=== PATIENT | male | born 1955 | race Two or more races ===

== ENCOUNTER 2024-03-22 13:02 | Emergency (ER) | payer OTHER, MEDICAID, SELFPAY ==
[2024-03-22 13:28] VITALS: BP 134/73; PULSE 68; RESP 18; TEMP 36.7; O2SAT 97; BMI 26.6
--- NOTE | 2024-03-22 13:40 | PD.EDADULT ---
ED General RME/HPI General Chief complaint: Flu Like Symptoms Stated complaint: FLU SYMPTOMS FOR 7 DAYS Time Seen by Provider: 03/22/24 13:37 Arrival date/time: CC: Cough fever phlegm , chills HPI ongoing for the past 4 days after day 2, fever disagrees but although symptoms persisted. Minimal relief with Tylenol. No other complaints including chest pain shortness of breath breathing. 03/22/24 13:02 Related Data Previous Rx's ?Medication ?Instructions ?Recorded doxycycline hyclate 100 mg capsule 100 mg PO BID #14 caps 03/22/24 prednisone 20 mg tablet See Taper PO BID 3 days #6 tabs 03/22/24 Allergies Allergy/AdvReac Type Severity Reaction Status Date / Time No Known Allergies Allergy Verified 03/22/24 13:05 Review of Systems Review of Systems Narrative Review of Systems: GEN: + fever, + chills, no weight loss EYES: No discharge, no visual changes, no pain HEENT: No ear pain, no congestion, no sore throat PULM: No shortness of breath, + cough, no congestion CV: No chest pain, no dyspnea on exertion, no palpitations GI: No nausea, no vomiting, no diarrhea, no pain, no constipation : No frequency, no urgency, no dysuria MUSC/SKEL: No joint pain, no back pain SKIN: No rash PSYCH: No hallucinations, no depression HEME/LYMPH: No easy bleeding or bruising tendencies NEURO: No weakness, no headache Past Medical History Social History SMOKING STATUS: Current some day smoker ED Exam Narrative Physical exam: [General: Not in any acute distress Head normocephalic HEENT: Eyes pupils PERRLA EOMs intact, all other subsystems of HEENT are within acceptable limits Neck is supple nontender Chest equal chest rise nontender to palpation Respiratory: Clear to auscultation no wheezes crackles or rubs CV: Rate rhythm is regular no murmurs rubs or clicks Abdomen is soft nontender no masses positive bowel sounds all 4 quadrants Back: No CVA tenderness no spinous process tenderness from cervical spine thoracic and lumbar spine Skin: Intact no petechiae rash induration ulceration or crepitus Extremities: Moving all extremity against resistance cap refill less than 2 seconds neurosensory intact Neuro: Awake alert oriented x3 Glascow coma 15 no focal deficits] Course Quality Measures none Vital Signs Vital signs: Vital Signs Temperature 98.1 F 03/22/24 13:28 Pulse Rate 68 03/22/24 13:28 Respiratory Rate 18 03/22/24 13:28 Blood Pressure 134/73 H 03/22/24 13:28 Pulse Oximetry (%) 97 03/22/24 13:28 Oxygen Delivery Method Room Air 03/22/24 13:28 [facility] Patient data External records reviewed:: [facility] previous records Clinical information provided by:: patient and spouse Social determinants that could affect healthcare access:: none Patient has the following chronic illnesses:: None How is presenting disease/condition affected by chronic disease/condition?: uneffected by Evaluation data The following diagnostics were reviewed and interpreted by me:: other (specify) (None) Lab and/or radiology exams considered but not ordered:: None Interpretation Summary: Bronchitis Medications Medications considered but not ordered:: None Medication administrations:: None Consultations Consultation(s) initiated? (list below): No Diagnosis Differential Diagnosis ED Complaint MDM: Pneumonia bronchitis URI Most likely diagnosis given after review of the tests above:: Bronchitis Admission Indicated Admission indicated?: not indicated Explain why admission is indicated or not indicated:: Stable for outpatient Admission Request Was there a request for admission?: No Disposition Plan Disposition Plan: Discharge Discharge Attestation Discharge Attestation: The patient and all family members were given an opportunity to ask questions and understood the discharge instructions. Discharge instructions specifically effects, indications for sooner follow up or return to the emergency department, and the expected course of current diagnosis. Patient condition: Stable Medical Decision Making Differential Diagnosis Differential Diagnosis: Pneumonia bronchitis URI Discharge Plan Plan Patient Disposition: HOME (Self Care) Patient condition on transfer: Stable Prescriptions/Referrals Prescriptions/Med Rec: New doxycycline hyclate 100 mg capsule 100 mg PO BID Qty: 14 0RF prednisone 20 mg tablet See Taper PO BID 3 Days Qty: 6 0RF Taper: Prednisone Taper 20 mg DAILY for 2 Days and 0 Hour 10 mg DAILY for 2 Days and 0 Hour 5 mg DAILY for 7 Days and 0 Hour Referrals: Gabo Castillo MD [Physician] - In 1 week No Primary/Family,Physician [Primary Care Provider] - In 1 week Problem List Clinical Impression: Bronchitis Patient/Caregiver Discharge Instructions Other Activity Instructions:: Take the medications as prescribed, if there is a worsening of symptoms follow-up with your primary care doctor. Continue take ibuprofen or Tylenol. Education Materials: ED Upper Resp Infec Abx Tx Print Language: Surinamese Stand Alone Forms: Krista Award Info., Work/School Release, Patient Portal Info Letter PA/BONE CHAR KILN TENDER Supervising Physician PA/BONE CHAR KILN TENDER Supervising Physician: Sushant Greco ENP
== END 2024-03-22 15:21 | disposition home or self-care (01) ==
PROVIDERS: Emergency Provider Emergency Medicine
DX: J40 Bronchitis, not specified as acute or chronic (principal); F17.200 Nicotine dependence, unspecified, uncomplicated
CPT/HCPCS: 99281

== ENCOUNTER 2024-06-24 18:42 | Emergency (ER) | payer OTHER, MEDICAID, SELFPAY ==
--- NOTE | 2024-06-24 18:52 | XR_ITS ---
Examination: CT brain head without contrast. 2-D sagittal coronal reconstructions Date and time of exam:June 24, 2024 1925 hrs. Indications: Onset right upper back and right upper extremity numbness beginning 2 days ago CTDI: vol (mGy):49.2 DLP: (mGycm):995 Technique: Multiple CT axial sections of the brain have been obtained, 5 mm slice thickness. Contrast has not been administered. 2-D sagittal, coronal reconstructions have been obtained Low dose protocols were performed. One or more of the following dose reduction techniques were used; automated exposure control, adjustment of the mA and/or KV according to patient size, use of iterative reconstruction technique. Findings: No significant ventricular enlargement. Intra-axial or extra-axial hemorrhage density is not seen. No mass effect or midline shift Basal cisterns are not remarkable. Fourth ventricle is midline. Cranial vault intact. Impression: Negative for acute hemorrhage, mass effect or midline shift As clinically warranted, brain MRI follow-up would best assess for acute ischemic change
--- NOTE | 2024-06-24 18:53 | XR_ITS ---
Examination: Shoulder,right, 3 views Technique: Shoulder AP internal rotation, AP external rotation, Y view shoulder, 3 views Exam date and time :June 24, 20242005 hrs. Indications: Right shoulder pain 3 weeks. Findings: Advanced osteoarthritis glenohumeral joint Right shoulder calcific tendinitis No fracture or dislocation Impression: Advanced right shoulder osteoarthritis Right shoulder calcific tendinitis
--- NOTE | 2024-06-24 18:56 | PD.EDBACK ---
ED Back Injury Pain RME/HPI General Chief Complaint: Back Pain/Injury Stated Complaint: RIGHT UPPER BACK PAIN Time Seen by Provider: 06/24/24 18:52 Arrival date/time: 06/24/24 18:42 RME / HPI RME / HPI Narrative: This section includes all my notes and documentations, including HPI, PE, and ED course. Nasir Keene MD HPI: 69yo male presents to the ED for a chief complaint of right chest/upper abdominal pain. Patient states he's had right upper abdominal/chest pain for the last 3 weeks, reporting it worsens when he moves his arms a certain way. He also endorses having right hand numbness since yesterday at 0900 and has been shaky ever since. He denies any falls or injuries. No speech or visual impairment. No loss of power in the arms or legs. No chest pain. No other complaints reported. ROS: All negative except as documented in HPI. Physical Exam: General: Alert and oriented. No acute distress when remaining still. Eyes: Conjunctivae and lids clear. PERRL. EOMI. ENT: No nasal congestion. Neck: Supple. Heart: RRR. Lungs: No respiratory distress. Good air movement. No rhonchi, wheezing, rales. Skin: Warm and dry. Neuro: Alert and oriented X 3. Cranial nerves II through XII grossly normal. No peripheral motor deficits. Right shoulder: No tenderness with palpation. Limited range of motion due to pain. I reviewed all diagnostic test results. My interpretation of the shoulder x-ray is NAD. My review of the head CT report is NAD. At this point, diagnoses include muscle strain. Recommended supportive care. Based on my best medical judgment, made decision no further evaluation or treatment indicated at this time. Patient understands and agrees to the discharge instructions customized and printed, see below. Discharge Instructions from Dr. Keene printed for you: 1. After evaluation, there is no stroke. 2. Your symptoms are due to tears in small muscle fibers in your right shoulder and right torso. And the swelling inflammation is pinching the nerves causing your numbness and tingling in the right fingers. Will get better in a month. 3. Activity as tolerated. 4. Apply ice or heat if helpful 5. Ibuprofen 400 mg every 6-8 hours today and tomorrow to decrease inflammation then as needed. Lidocaine patches as needed. Tylenol with codeine for severe pain. 6. See a private doctor on 06/29/24 for recheck. Ask for help until you are completely better. 7. Seek immediate medical care with worsening or with any concerns. Nasir Keene MD Related Data Previous Rx's ?Medication ?Instructions ?Recorded doxycycline hyclate 100 mg capsule 100 mg PO BID #14 caps 03/22/24 acetaminophen 300 mg-codeine 30 mg 2 tab PO Q8H PRN pain #20 tabs 06/24/24 tablet cyclobenzaprine 5 mg tablet 5 mg PO TID PRN muscle spasm #15 06/24/24 tabs lidocaine 5 % topical patch 2 patch topical QDAY PRN pain #30 06/24/24 (Lidoderm) ea Allergies Allergy/AdvReac Type Severity Reaction Status Date / Time No Known Allergies Allergy Verified 06/24/24 18:49 Review of Systems Review of Systems Systems Reviewed: All systems reviewed, normal except as documented Past Medical History Social History SMOKING STATUS: Never smoker ED Exam Narrative Physical exam: As noted in HPI. Course Quality Measures none Orders Category Date Time Status CT head/brain wo con Stat Exams 06/24/24 18:52 Completed XR shoulder RT min 2V Stat Exams 06/24/24 18:53 Completed Vital Signs Vital signs: Vital Signs Temperature 99 F 06/24/24 19:19 Pulse Rate 64 06/24/24 19:19 Respiratory Rate 18 06/24/24 19:19 Blood Pressure 143/76 H 06/24/24 19:19 Pulse Oximetry (%) 97 06/24/24 19:19 Oxygen Delivery Method Room Air 06/24/24 19:19 Back Pain / Injury MDM Narrative [facility] Narrative:: Scribe Attestation: 06/24/24 Tonie Johnson am scribing for and in the presence of Dr. Keene. Patient data External records reviewed:: [facility] previous records (Per chart review, patient was seen here on 03/22/24 for bronchitis.) Clinical information provided by:: patient Social determinants that could affect healthcare access:: none Patient has the following chronic illnesses:: none How is presenting disease/condition affected by chronic disease/condition?: no chronic disease Evaluation data The following diagnostics were reviewed and interpreted by me:: radiology exam(s) Lab and/or radiology exams considered but not ordered:: none Interpretation Summary: Muscle strain Medications / Prescriptions Medications or Prescriptions considered but not ordered:: none Medication administrations:: none Consultations Consultation(s) initiated? (list below): No Diagnosis Differential diagnosis back pain/injury: thoracic back pain and other (CVA, brain tumor, rotator cuff tear, muscle sprain/strain) Most likely diagnosis given after review of the tests above:: Muscle strain Admission Indicated Admission indicated?: not indicated Explain why admission is indicated or not indicated:: No criteria for admission. Admission Request Was there a request for admission?: No Disposition Plan Disposition Plan: Discharge Discharge Attestation Discharge Attestation: The patient and all family members were given an opportunity to ask questions and understood the discharge instructions. Discharge instructions specifically effects, indications for sooner follow up or return to the emergency department, and the expected course of current diagnosis. Patient condition: Stable Discharge Plan Plan Patient Disposition: HOME (Self Care) Prescriptions/Referrals Prescriptions/Med Rec: New acetaminophen-codeine 300-30 mg tablet 2 tab PO Q8H MDD 6 PRN (Reason: pain) Qty: 20 0RF lidocaine [Lidoderm] 5 % adhesive patch,medicated 2 patch topical QDAY PRN (Reason: pain) Qty: 30 0RF Rx Instructions: leave on most painful area for up to 12 hrs cyclobenzaprine 5 mg tablet 5 mg PO TID PRN (Reason: muscle spasm) Qty: 15 0RF No Action doxycycline hyclate 100 mg capsule 100 mg PO BID Qty: 14 0RF Referrals: No Primary/Family,Physician [Primary Care Provider] - In 1 week Problem List Clinical Impression: Muscle strain Patient/Caregiver Discharge Instructions Discharge Activity: activity as tolerated Education Materials: ED Rotator Cuff Tear, ED Chest Wall Strain (Child) Additional Instructions: Discharge Instructions from Dr. Keene printed for you: 1. After evaluation, there is no stroke. 2. Your symptoms are due to tears in small muscle fibers in your right shoulder and right torso. And the swelling inflammation is pinching the nerves causing your numbness and tingling in the right fingers. Will get better in a month. 3. Activity as tolerated. 4. Apply ice or heat if helpful 5. Ibuprofen 400 mg every 6-8 hours today and tomorrow to decrease inflammation then as needed. Lidocaine patches as needed. Tylenol with codeine for severe pain. 6. See a private doctor on 06/29/24 for recheck. Ask for help until you are completely better. 7. Seek immediate medical care with worsening or with any concerns. Instrucciones de lois del Dr. Keene impresas para usted: 1. Tras la evaluaci?n, no se bolanos detectado un accidente cerebrovascular. 2. Libra s?ntomas se deben a desgarros en las fibras musculares pam?as del hombro y torso derechos. La inflamaci?n est? comprimiendo los nervios, lo que le causa entumecimiento y hormigueo en los dedos derechos. Mejorar? en un mes. 3. Realice actividades seg?n lo tolere. 4. Aplique hielo o calor si le resulta ?til. 5. Ibuprofeno 400 mg cada 6-8 horas hoy y ma?lynnette para reducir la inflamaci?n, y luego seg?n sea necesario. Parches de lidoca?na seg?n sea necesario. Tylenol con code?na para el dolor intenso. 6. Consulte con un m?dico particular el 29/06/24 para devin nueva revisi?n. Pida ayuda hasta que se recupere por completo. 7. Busque atenci?n m?dica inmediata si presenta empeoramiento o si tiene alguna inquietud. Print Language: Kinyarwanda Stand Alone Forms: Krista Award Info., Patient Portal Info Letter
[2024-06-24 19:19] VITALS: BP 143/76; PULSE 64; RESP 18; TEMP 37.2; O2SAT 97
[2024-06-24 21:11] VITALS: RESP 18
== END 2024-06-24 21:12 | disposition home or self-care (01) ==
PROVIDERS: Emergency Provider Emergency Medicine
DX: S46.911A Strain of unspecified muscle, fascia and tendon at shoulder and upper arm level, right arm, initial encounter (principal); M54.6 Pain in thoracic spine; R10.11 Right upper quadrant pain; R07.9 Chest pain, unspecified; R20.0 Anesthesia of skin; X58.XXXA Exposure to other specified factors, initial encounter
CPT/HCPCS: 70450; 73030; 99284